=== PATIENT | male | born 1950 | race Two or more races ===

== ENCOUNTER 2023-07-09 21:43 | Emergency (ER) | payer MEDICAID, SELFPAY ==
--- NOTE | 2023-07-09 22:40 | ED.GENMED ---
History of Present Illness
General
Chief Complaint: Dental Problem
Source: patient
Exam Limitations: none
Time Seen by Provider: 07/09/23 21:56
Nursing documentation reviewed up to this point in time: agreed with
Travel History
Have you had any contact with someone who has COVID-19?: No
Do you have any symptoms of coronavirus? Fever > 100 degrees, chills, cough, shortness of breath, sore throat, loss of taste or smell, muscle aches, or headache?: No
History of Present Illness
History of Present Illness:
73yr. old male Slovak speaking presents to the ED complaining of left lower posterior tooth pain. Patient apparently saw dentist and was instructed to get a root canal as per family friend. He presents tonight complaining of increased pain.
Language line used for interpretation. Patient has not really been taking anything for pain. He denies any fever or chills. He Does complain of mild facial swelling. Denies difficulty opening his mouth.
Review of Systems
Review of Systems
Allergies reviewed?: Yes
All Other Systems: ROS reviewed and negative except as documented in HPI and ROS
Constitutional: Reports no symptoms; Denies fever, fatigue or chills
EENT: Reports other (left lower posterior tooth pain )
ABD/GI: Reports no symptoms
Musculoskeletal: Reports no symptoms
Phy Exam
General Physical Exam
General Presentation: no apparent distress
General age: appears stated age
General Skin: warm and dry
General Habitus: normal
General Mental: alert
General Hydration: appears well hydrated
ENT Exam
ENT Exam: EOMI, neck supple and other (left lower posterior molar with obvious cavity that has been filled, tender no gum fluctuance minimal left sided facial swelling no trismus )
Neurological Exam
Neurological Exam: alert and oriented x3
Musculoskeletal Exam
Musculoskeletal Exam: full ROM
Skin Exam
Skin Exam: normal color and warm/dry
Psychiatric Exam
Psychiatric Exam: normal mood/affect
Course
Orders/Labs/Results
Orders:
Orders
07/09/23 22:39
Penicillin V Potassium [Pen Vk] 500 mg PO NOW STA
07/09/23 22:40
Ibuprofen [Motrin] 600 mg PO NOW STA
07/09/23 22:43
Vital Signs- Treatment ONCE
Frequency: Once
Vital Signs
Initial and Last Documented VS:
Initial Vital Signs
Temp Pulse Resp BP Pulse Ox
98.5 F 65 16 136/86 99
07/09/23 22:46 07/09/23 22:46 07/09/23 22:46 07/09/23 22:46 07/09/23 22:46
Last Documented Vital Signs
Temp Pulse Resp BP Pulse Ox
98.5 F 65 16 136/86 99
07/09/23 22:46 07/09/23 22:46 07/09/23 22:46 07/09/23 22:46 07/09/23 22:46
MDM/Problems Addressed
Differential Diagnosis Includes:
Not limited to dental pain, cavity, abscess
MDM/Problems Addressed:
Patient with tenderness to left posterior molar no fluctuance mild facial swelling however no trismus nontoxic denies any fevers or difficulty breathing. Language line was used for interpretation. Patient has seen dentist and was told he needs a
root canal. Will place on antibiotics with ibuprofen Tylenol and discussed close outpatient follow-up with dental
*Critical Care Note
Total Time (30-74mins, 75-104mins- exclusive of procedures): Not Applicable
ED Attending Note
-
Portions of this chart may have been created with voice recognition software.� Occasional wrong word or��sound alike� substitutions may have occurred due to the inherent limitations of voice recognition software.
Discharge Plan
Departure
Patient Disposition: Home (Routine Discharge)
Date of Disposition: 07/09/23
Time of Disposition: 22:43
Patient with high blood pressure during this ER visit?: Yes
Covid-19: Not Applicable
Discharge Problem:
tooth pain
Instructions: Dental Pain (DC), BLOOD PRESSURE
Prescriptions:
New
penicillin V potassium 500 mg tablet
500 mg PO QID Qty: 40 0RF
Referrals:
NONE,* [Family Provider] -
Activity Restrictions/Additional Instructions:
Antibiotic as directed every 6 hours. Patient may alternate between ibuprofen 600 mg every 8 hours with food and Tylenol 650 mg orally every 4-6 hours.
Follow-up with dentist in the next several days return if any worsening of symptoms include increased pain fever chills facial swelling or any further concerns
Interventions
Interventions:
*Risk Screen - Suicide Last Done: 07/09/23 21:52
*General Assessment Last Done: 07/09/23 21:52
*Neglect/Abuse Screening Last Done: 07/09/23 21:52
ED- Fall Risk Assessment Last Done: 07/09/23 21:58
*ED COVID-19 Vaccine History Last Done: 07/09/23 21:52
*Nursing Disposition Last Done: 07/09/23 22:38
[2023-07-09] MEDS: PEN VK 500 MG PO (22:44)
[2023-07-09] MEDS: MOTRIN 600 MG PO (22:44)
[2023-07-09 22:46] VITALS: BP 136/86
== END 2023-07-09 22:52 | disposition home or self-care (01) ==
LOC: EMR 21:43
PROVIDERS: EMERGENCY PHYSICIAN Emergency Medicine
DX: K08.89 Other specified disorders of teeth and supporting structures (principal); I10 Essential (primary) hypertension
CPT/HCPCS: 99283